=== PATIENT | female | born 1940 | race Caucasian/White ===

== ENCOUNTER → 2017-05-05 | Outpatient (CLI) | payer MEDICARE, BC ==
[~2017-05-05] MED LIST: ALLEGRA180 MG PO; AMIODARONE HCL400 MG PO; ATARAX PO; ATENOLOL PO; CALCIUM1 TAB.CHEW PO; CENTRUM PO; CENTRUM SILVER PO; CERTAGEN PO; CITRACAL-VIT D1 EAC1 PO; CITRACAL200 M1 PO; CITRACAL200 MG; CITRACAL200 MG PO; CLINDAMYCIN PH600 MG PO; COMBIVENT MININEB INH; COREG12.5 MG PO; COUMADIN2.5 MG PO; DICLOFENAC PO; EXCEDRIN ASA FR1 TA1 PO; EXCEDRIN EXTRA1 TAB PO; FEOSOL PO; FISH OIL 1,0001 CAP PO; FISH OIL 1,0001 EAC3 PO; FISH OIL 1,001000 MG PO; FISH OIL500 MG PO; FUROSEMIDE40 MG PO; K-DUR10 MEQ PO; KCL PO; LANOXIN125 MCG PO; LASIX PO; LIPITOR20 MG PO; MAG-OX 400400 M1 PO; MAGOX 400400 MG PO; METOPROLOL TAR25 MG PO; MULTIVITAMIN1 UDCAP PO; NEXIUM20 MG PO; NEXIUM40 MG/PACK PO; NORVASC PO; PRADAXA150 MG PO; PREDNISONE PO; SIMVASTATIN40 MG PO; SYMBICORT INH; TAGAMET300 MG; TENORMIN50 MG PO; THERA-TABS M C1 EACH PO; VOLTAREN75 MG PO; ZOCOR PO; [UNRECOGNIZED DRUG - OTHER]; [UNRECOGNIZED DRUG - OTHER] DOB
--- NOTE | ~2017-05-05 | CR106 ---
[facility] A Service of [facility] & [facility] RADIOLOGY TEXT RESULTS PATIENT: AMAURY DUPONT LOCATION: [facility] : 40 UNIT #: [id number] AGE: [address]: OJ LARA MD SEX: F ORDER DR: [id number] [facility] [address] [place], [place] [address] [id number] O MR#: [id number] Acc #: [id number] NAME: AMAURY DUPONT : 1940 SEX: F STUDY DATE/TIME: 05/05/2017 13:38 UNIT: [facility] ROOM: STUDY DESCRIPTION: CR Femur 2 Views Lt Attending Physician: Oj Lara M.D. Referring Physician: Oj Lara M.D. Ordering Physician: Oj Lara M.D. Primary Care Physician: Oj Lara M.D. MEDICAL IMAGING REPORT This report is preliminary unless electronic signature is present EXAM Left femur, 05/05/17, 1338 hours. CLINICAL HISTORY 2-month history of left hip and thigh pain. No reported injury. COMPARISON None. FINDINGS AP and lateral views of left femur demonstrate postop change left knee replacement. The bones are mildly osteopenic. There is no femur fracture or underlying lesion. IMPRESSION No femur fracture or underlying bone lesion. Patient is status post left knee replacement with anatomic alignment. Dictated by... Zulema Evans M.D. THIS IS AN ELECTRONICALLY VERIFIED REPORT Zulema Evans M.D. at 05/08/2017 10:35 AM Victorino TD: 05/05/2017 18:11 JOB #: [id number] MEDICAL IMAGING REPORT Page 1 of 1 COPY
--- NOTE | ~2017-05-05 | CR150 ---
[facility] A Service of [facility] & [facility] RADIOLOGY TEXT RESULTS PATIENT: AMAURY DUPONT LOCATION: [facility] : 40 UNIT #: [id number] AGE: [address]: OJ LARA MD SEX: F ORDER DR: [id number] [facility] [address] [place], [place] [address] [id number] O MR#: [id number] Acc #: [id number] NAME: MAAURY DUPONT : 1940 SEX: F STUDY DATE/TIME: 05/05/2017 UNIT: [facility] ROOM: STUDY DESCRIPTION: CR Hip Min 2 Views Lt Attending Physician: Oj Lara M.D. Referring Physician: Oj Lara M.D. Ordering Physician: Oj Lara M.D. Primary Care Physician: Oj Lara M.D. MEDICAL IMAGING REPORT This report is preliminary unless electronic signature is present EXAM Left hip 05/05/2017 1337 hours HISTORY Left hip and thigh pain for 2 months, possible arthritis. No reported injury. COMPARISON Femur film 05/05/2017. CT abdomen and pelvis 02/15/2015. FINDINGS AP pelvis and frog lateral view left hip demonstrate no hip or pelvic fracture. There is mild joint space loss at both hips and spurring at the sacroiliac joints. There is some spurring or heterotopic bone extending inferiorly from the left inferior ramus, similar to prior CT scan. There is severe lumbar scoliosis and severe multilevel degenerative disc disease and facet degenerative change similar to prior CT scan. Consider a lumbar source of the patient's left hip pain. IMPRESSION 1. Negative left hip. There is enthesopathic change or spurring from the left inferior ramus, similar to prior CT 02/15/2015. There is no significant joint space loss or fracture. No plain film evidence of a mass necrosis. 2. Patient is noted to have severe degenerative disc disease in the lumbar spine with scoliosis and vacuum phenomenon with large osteophytes. Consider a lumbar source for the patient's left hip and thigh pain. Dictated by... Zulema Evans M.D. [facility] A Service of [facility] & [facility] RADIOLOGY TEXT RESULTS PATIENT: AMAURY DUPONT LOCATION: [facility] : 40 UNIT #: [id number] AGE: [address]: OJ LARA MD SEX: F ORDER DR: THIS IS AN ELECTRONICALLY VERIFIED REPORT Zulema Evans M.D. at 05/08/2017 10:35 AM IRVIN/jose alfredo TD: 05/05/2017 17:19 JOB #: [id number] MEDICAL IMAGING REPORT Page 1 of 1 COPY
== END | disposition home or self-care (01) ==
LOC: CRAD 13:20
DX: M79.652 Pain in left thigh (principal); M51.36 Other intervertebral disc degeneration, lumbar region; Z96.652 Presence of left artificial knee joint
CPT/HCPCS: 73502; 73552

== ENCOUNTER → 2017-05-12 | Outpatient (CLI) | payer MEDICARE, BC ==
--- NOTE | ~2017-05-12 | CR181 ---
[facility] A Service of [facility] & [facility] RADIOLOGY TEXT RESULTS PATIENT: AMAURY DUPONT LOCATION: [facility] : 40 UNIT #: [id number] AGE: [address]: OJ LARA MD SEX: F ORDER DR: [id number] [facility] [address] [place], [place] [address] [id number] O MR#: [id number] Acc #: [id number] NAME: AMAURY DUPONT : 1940 SEX: F STUDY DATE/TIME: 05/12/2017 16:33 UNIT: [facility] ROOM: STUDY DESCRIPTION: CR Lumbar Spine 2 or 3 Views Attending Physician: Oj Lara M.D. Referring Physician: Oj Lara M.D. Ordering Physician: Oj Lara M.D. Primary Care Physician: Oj Lara M.D. MEDICAL IMAGING REPORT This report is preliminary unless electronic signature is present EXAM Lumbar spine 3 views, 05/12/2017 HISTORY Low back pain and left thigh pain for 3 years. No known injury. FINDINGS Three views of the lumbar spine demonstrate no fracture. The posterior vertebral body line is intact and there is no anterolisthesis or retrolisthesis. There is marked disc space narrowing throughout the lumbar spine with degenerative endplate sclerosis and marginal osteophyte formation throughout the lumbar spine as well as vacuum disc phenomenon. There is degenerative change involving the articular facets. The bones are osteopenic. Dextroscoliosis of the lumbar spine is noted. Atherosclerotic calcification is seen throughout the abdominal aorta. IMPRESSION Extensive degenerative change and scoliosis of the lumbar spine. No acute abnormality. Dictated by... Jan Bethea M.D. THIS IS AN ELECTRONICALLY VERIFIED REPORT Jan Bethea M.D. at 05/14/2017 6:25 AM Jessica TD: 05/13/2017 13:18 JOB #: [id number] MEDICAL IMAGING REPORT Page 1 of 1 COPY
== END | disposition home or self-care (01) ==
LOC: CRAD 16:15
DX: M79.652 Pain in left thigh (principal); M41.9 Scoliosis, unspecified
CPT/HCPCS: 72100